=== PATIENT | male | born 1990 | race Caucasian/White ===

== ENCOUNTER 2018-08-15 22:00 | Inpatient (IN) | payer SELFPAY ==
[~2018-08-15] VITALS: Ht 182.9 cm; Wt 73.7 kg
[2018-08-15 22:04] VITALS: Ht 182.9 cm; Wt 73.7 kg
[2018-08-15 22:57] LABS: RED CELL DISTRIBUTION WIDTH 14.7 % (11.5-14.5)
[2018-08-15 22:58] LABS: CALCIUM 8.5 mg/dL (8.5-10.1); CARBON DIOXIDE 20.4 mmol/L (21-32); CHLORIDE SERUM 104 mmol/L (98-107); CREATININE SERUM 1.5 mg/dL (0.7-1.3); GFR1 > 60 mL/min; GLUCOSE SERUM 200 mg/dL (74-106); PLATELET COUNT 527 x10^3mcL (130-400); POTASSIUM SERUM 3.4 mmol/L (3.5-5.1); SODIUM SERUM 143 mmol/L (136-145)
[2018-08-15 23:04] LABS: ALKALINE PHOSPHATASE 185 U/L (46-116); ALT/SGPT 212 U/L (16-63); AST/SGOT 69 U/L (15-37); BILIRUBIN TOTAL 0.86 mg/dL (0.20-1.00); TOTAL PROTEIN, SERUM 6.5 g/dL (6.4-8.2)
[2018-08-15 23:26] LABS: ATYPICAL LYMPH 7 %; BAND NEUTROPHIL 5 % (0-10); METAMYELOCTE 2 % (0-2); MONOCYTE 4 % (0-7); SEGMENTED NEUTROPHILS 55 % (37-75); rbc morphology (normal/abnorm) NORMAL (NORMAL)
[2018-08-15 23:49] LABS: UA SPECIFIC GRAVITY >=1.030 (1.005-1.035); microscopic required? YES; urine erythrocyte TRACE (NEGATIVE)
[2018-08-15 23:58] LABS: MAGNESIUM 2.2 mg/dL (1.8-2.4); PHOSPHOROUS 8.8 mg/dL (2.5-4.9)
[2018-08-16] VITALS (7 sets, daily range): BP systolic 95–117; BP diastolic 60–76
[2018-08-16 00:07] LABS: AMPHETAMINE QUAL UR POSITIVE (See below)
[2018-08-16 06:17] LABS: RED CELL DISTRIBUTION WIDTH 13.9 % (11.5-14.5)
[2018-08-16 06:44] LABS: ALKALINE PHOSPHATASE 140 U/L (46-116); ALT/SGPT 186 U/L (16-63); AST/SGOT 67 U/L (15-37); BILIRUBIN DIRECT 0.27 mg/dL (0.0-0.2); BILIRUBIN TOTAL 0.72 mg/dL (0.20-1.00); CHLORIDE SERUM 109 mmol/L (98-107); CREATININE SERUM 1.1 mg/dL (0.7-1.3); GFR1 > 60 mL/min; GLUCOSE SERUM 148 mg/dL (74-106); MAGNESIUM 1.8 mg/dL (1.8-2.4); PHOSPHOROUS 2.6 mg/dL (2.5-4.9); POTASSIUM SERUM 4.7 mmol/L (3.5-5.1); SODIUM SERUM 143 mmol/L (136-145)
[2018-08-16 06:46] LABS: ALBUMIN 2.7 g/dL (3.4-5.0); TOTAL PROTEIN, SERUM 5.9 g/dL (6.4-8.2)
[2018-08-16 07:38] LABS: PLATELET COUNT 466 x10^3mcL (130-400)
[2018-08-16 11:42] LABS: ATYPICAL LYMPH 1 %; BAND NEUTROPHIL 18 % (0-10); BASOPHIL 0 % (0-2); MONOCYTE 1 % (0-7); SEGMENTED NEUTROPHILS 77 % (37-75)
[2018-08-16 11:43] LABS: rbc morphology (normal/abnorm) ABNORMAL (NORMAL)
[2018-08-16 11:44] LABS: PLATELET MORPHOLOGY PLATELETS INCREASED
[2018-08-17 05:43] VITALS: BP 124/61
[2018-08-17 06:34] LABS: PLATELET COUNT 393 x10^3mcL (130-400)
[2018-08-17 07:10] LABS: CALCIUM 8.4 mg/dL (8.5-10.1); CARBON DIOXIDE 25.1 mmol/L (21-32); CHLORIDE SERUM 109 mmol/L (98-107); CREATININE SERUM 0.8 mg/dL (0.7-1.3); GFR1 > 60 mL/min; GLUCOSE SERUM 136 mg/dL (74-106); PHOSPHOROUS 3.5 mg/dL (2.5-4.9); POTASSIUM SERUM 3.9 mmol/L (3.5-5.1); SODIUM SERUM 143 mmol/L (136-145)
[2018-08-17 09:04] LABS: BASOPHIL % 0 % (0-2); RED CELL DISTRIBUTION WIDTH 14.6 % (11.5-14.5)
[2018-08-17 09:09] VITALS: BP 101/54
[2018-08-17] MEDS ORDERED: PRE20 PO (13:33)
[2018-08-17] MEDS ORDERED: LEVOFLOXACIN750 M1 PO (13:33)
[2018-08-17] MEDS ORDERED: PREDNISONE20 MG PO ×2 (13:33→13:34)
[2018-08-17] MEDS ORDERED: VENTOLIN H0.09 MG/A1 INH (13:34)
== END 2018-08-17 14:35 | disposition left against medical advice (07) | DRG 917 ==
LOC: ED 22:00 → DU 23:20 → EDBD 23:20 → DU 08-16 02:15
PROVIDERS: Emergency Medicine; Family Medicine
DX: T40.2X1A Poisoning by other opioids, accidental (unintentional), initial encounter (principal); G92 Toxic encephalopathy; N17.0 Acute kidney failure with tubular necrosis; J45.901 Unspecified asthma with (acute) exacerbation; Z68.1 Body mass index [BMI] 19.9 or less, adult; R65.10 Systemic inflammatory response syndrome (SIRS) of non-infectious origin without acute organ dysfunction; Z60.2 Problems related to living alone; R74.0 Nonspecific elevation of levels of transaminase and lactic acid dehydrogenase [LDH]; T43.621A Poisoning by amphetamines, accidental (unintentional), initial encounter; F11.10 Opioid abuse, uncomplicated; Z53.21 Procedure and treatment not carried out due to patient leaving prior to being seen by health care provider; F15.10 Other stimulant abuse, uncomplicated; D47.3 Essential (hemorrhagic) thrombocythemia; Z71.51 Drug abuse counseling and surveillance of drug abuser; Y92.89 Other specified places as the place of occurrence of the external cause
CPT/HCPCS: 82962; 87804; G0480; J1956; J2060; J2920; J2930; J7030; J7620; Q0092

== ENCOUNTER 2019-04-27 00:18 | Emergency (ER) | payer MEDICAID ==
[~2019-04-27] VITALS: Ht 182.9 cm; Wt 73.5 kg
[~2019-04-27 00:18] MED LIST: LEVOFLOXACIN750 M1 PO; PRE20 PO; PREDNISONE20 MG PO; VENTOLIN H0.09 MG/A1 INH
[2019-04-27 00:34] VITALS: Ht 182.9 cm; Wt 73.5 kg
[2019-04-27 02:20] VITALS: BP 128/79
== END 2019-04-27 02:20 | disposition home or self-care (01) ==
LOC: ED 00:18
DX: S42.012A Anterior displaced fracture of sternal end of left clavicle, initial encounter for closed fracture (principal); F17.210 Nicotine dependence, cigarettes, uncomplicated; J45.909 Unspecified asthma, uncomplicated; Z59.0 Homelessness; Z71.6 Tobacco abuse counseling; V29.49XA Motorcycle driver injured in collision with other motor vehicles in traffic accident, initial encounter; Y93.I9 Activity, other involving external motion; Y92.413 State road as the place of occurrence of the external cause; Y99.8 Other external cause status
CPT/HCPCS: 99406

== ENCOUNTER 2019-04-28 18:59 | Emergency (ER) | payer OTHER ==
[~2019-04-28] VITALS: Ht 182.9 cm; Wt 70.3 kg
[2019-04-28 19:08] VITALS: Ht 182.9 cm; Wt 70.3 kg
[2019-04-28 20:50] VITALS: BP 133/96
== END 2019-04-28 20:50 | disposition other institution (70) ==
LOC: ED 18:59
DX: Z02.89 Encounter for other administrative examinations (principal)

== ENCOUNTER 2019-12-29 21:51 | Inpatient (IN) | payer MEDICAID ==
[~2019-12-29] VITALS: Ht 182.9 cm; Wt 86.3 kg
[2019-12-29 22:52] LABS: BASOPHIL % 0.1 % (0-2); PLATELET COUNT 331 x10^3mcL (130-400); RED CELL DISTRIBUTION WIDTH 13.4 % (11.5-14.5)
[2019-12-29 22:58] LABS: CALCIUM 8.5 mg/dL (8.5-10.1); CARBON DIOXIDE 29.1 mmol/L (21-32); CHLORIDE SERUM 99 mmol/L (98-107); GFR1 > 60 mL/min; GLUCOSE SERUM 126 mg/dL (74-106); POTASSIUM SERUM 3.9 mmol/L (3.5-5.1); SODIUM SERUM 134 mmol/L (136-145)
[2019-12-29 23:03] LABS: ALKALINE PHOSPHATASE 167 U/L (46-116); ALT/SGPT 98 U/L (16-63); AST/SGOT 51 U/L (15-37); BILIRUBIN TOTAL 2.52 mg/dL (0.20-1.00); TOTAL PROTEIN, SERUM 7.6 g/dL (6.4-8.2)
[2019-12-29 23:24] LABS: ALBUMIN 3.1 g/dL (3.4-5.0)
[2019-12-30 00:38] VITALS: BP 116/69
[2019-12-30 00:42] VITALS: Ht 182.9 cm; Wt 86.3 kg
[2019-12-30 06:03] VITALS: BP 107/69
[2019-12-30 06:39] LABS: CALCIUM 8.5 mg/dL (8.5-10.1); CARBON DIOXIDE 28.7 mmol/L (21-32); CHLORIDE SERUM 105 mmol/L (98-107); CREATININE SERUM 0.9 mg/dL (0.7-1.3); GFR1 > 60 mL/min; GLUCOSE SERUM 106 mg/dL (74-106); MAGNESIUM 2.2 mg/dL (1.8-2.4); PHOSPHOROUS 3.3 mg/dL (2.5-4.9); POTASSIUM SERUM 3.9 mmol/L (3.5-5.1); SODIUM SERUM 139 mmol/L (136-145)
[2019-12-30 07:39] LABS: BASOPHIL % 0.4 % (0-2); PLATELET COUNT 312 x10^3mcL (130-400); RED CELL DISTRIBUTION WIDTH 13.1 % (11.5-14.5)
[2019-12-30 08:15] LABS: ALKALINE PHOSPHATASE 147 U/L (46-116); ALT/SGPT 101 U/L (16-63); AST/SGOT 60 U/L (15-37); BILIRUBIN TOTAL 2.3 mg/dL (0.20-1.00); CALCIUM 8.5 mg/dL (8.5-10.1); CARBON DIOXIDE 28.9 mmol/L (21-32); CHLORIDE SERUM 103 mmol/L (98-107); CREATININE SERUM 0.9 mg/dL (0.7-1.3); GFR1 > 60 mL/min; GLUCOSE SERUM 104 mg/dL (74-106); SODIUM SERUM 138 mmol/L (136-145)
[2019-12-30 08:18] LABS: ALBUMIN 2.8 g/dL (3.4-5.0)
[2019-12-30 08:20] VITALS: BP 117/69
[2019-12-30 12:24] VITALS: BP 114/73
== END 2019-12-30 14:05 | disposition left against medical advice (07) | DRG 383 ==
LOC: ED 21:51 → MU 23:41
PROVIDERS: Emergency Medicine; ADMIT Family Medicine
DX: L03.114 Cellulitis of left upper limb (principal); E44.1 Mild protein-calorie malnutrition; F11.20 Opioid dependence, uncomplicated; F15.20 Other stimulant dependence, uncomplicated; E87.1 Hypo-osmolality and hyponatremia; J45.909 Unspecified asthma, uncomplicated; F17.210 Nicotine dependence, cigarettes, uncomplicated; R74.0 Nonspecific elevation of levels of transaminase and lactic acid dehydrogenase [LDH]; Z68.26 Body mass index [BMI] 26.0-26.9, adult; Z53.29 Procedure and treatment not carried out because of patient's decision for other reasons; L02.414 Cutaneous abscess of left upper limb; D63.8 Anemia in other chronic diseases classified elsewhere
CPT/HCPCS: G0378; J2543; J3370; J7030; J7050; Q0092